=== PATIENT | male | born 1960 | race African-American/Black ===

== ENCOUNTER 2024-02-13 17:23 | Inpatient (IN) | payer OTHER ==
[2024-02-13 18:14] LABS: #Basophils 0.03 10x3/uL (0.0-0.2); %Basophils 0.3 % (0.0-1.0); %Eosinophils 2.8 % (0.0-10.0); %Lymphocytes 19.5 % (21.0-51.0); %Monocytes 8.3 % (0.0-10.0); %Neutrophils 68.5 % (42.0-75.0); Hematocrit 27.7 % (42.0-52.0); Mean Corpuscular HGB CONC 28.9 g/dL (32.0-36.0); Mean Corpuscular Hemoglobin 20.9 pg (27.0-31.0); Mean Corpuscular Volume 72.3 fL (78.0-98.0); Mean Platelet Volume 9.2 fL (7.4-10.4); Platelet Count 422 10x3/uL (130-400); Red Blood Cell (RBC) Count 3.83 mill/uL (4.70-6.10)
[2024-02-13 18:35] LABS: ALT (SGPT) 8 U/L (8-55); AST (SGOT) 13 U/L (5-34); Albumin 2.9 g/dL (3.4-4.8); Alkaline Phosphatase 86 U/L (40-110); Anion Gap 14 mmol/L (10-20); BUN (Urea Nitrogen) 13 mg/dL (8.4-25.7); Bilirubin, Total 0.2 mg/dL (0.2-1.2); Calc. Creatinine Clearance 0 mL/min (70-130); Calcium 8.5 mg/dL (7.8-10.44); Carbon Dioxide 23 mmol/L (23-31); Chloride 105 mmol/L (98-107); Estimated GFR 99; Globulin 4.3 g/dL (2.4-3.5); Glucose 89 mg/dL (80-115); Hypochromia SLIGHT = 6-15 cells HPF (0-5); Macrocytosis SLIGHT = 6-15 cells HPF (0-5); Platelet Adequacy Comment Platelets Increased; Polychromasia MODERATE = 3-4 cells HPF (0-2); Potassium 3.7 mmol/L (3.5-5.1); Protein, Total 7.2 g/dL (5.8-8.1); Schistocytes SLIGHT = 2-5 cells HPF (0-1); Sodium 138 mmol/L (136-145)
[2024-02-13 18:40] LABS: Troponin I Less than 0.010 ng/mL (< 0.028)
[2024-02-13] MEDS ORDERED: Dexamethasone 10 MG/ML VIAL ONE (18:47)
[2024-02-13] MEDS ORDERED: levETIRAcetam 500 MG (5 mL) VIAL ONE (18:48)
[2024-02-13 19:28] LABS: Bacteria/HPF None Seen HPF (None Seen); Bilirubin Negative (Negative); Blood, Urine Negative (Negative); CAUTI Indications for Culture Alt mental st,lethar; Clarity Clear (Clear); Glucose, Urine (Dipstick) Normal (Negative); Ketone, Urine Negative (Negative); Leukocyte Negative Leu/uL (Negative); Nitrite Negative (Negative); Protein, Urine (Dipstick) 10 mg/dL (Neg-Trace); RBC/HPF 0-3 HPF (0-3); Specific Gravity, Urine 1.017 (1.002-1.036); Squamous Epithelial None Seen HPF (0-3); WBC/HPF 0-3 HPF (0-3); pH, Urine 6.5 (5.0-9.0)
[2024-02-13 19:30] LABS: Urine Culture Reflex No No
[2024-02-13] MEDS ORDERED: Dextrose 5% in Water 1,000 ML IV PRN (21:12)
[2024-02-13] MEDS ORDERED: Glucagon 1 MG/ML KIT IM PRN (21:12)
[2024-02-13] MEDS ORDERED: Dextrose 50% Abboject 50 ML SYRINGE SLOW IVP PRN (21:12)
[2024-02-14 00:11] VITALS: BMI 25.5
[2024-02-14] MEDS: Dexamethasone 4 mg/ml Vial SLOW IVP SCH (00:49)
[2024-02-14] MEDS: Pantoprazole 40 MG VIAL IVP SCH (08:17)
[2024-02-14] MEDS: levETIRAcetam 500 MG (5 mL) VIAL SLOW IVP SCH (08:17)
[2024-02-14] MEDS: Acetaminophen 325 MG TAB PO PRN (08:17)
[2024-02-14] MEDS: Insulin Lispro 100 UNIT/ML 10 ML VIAL SC PRN (11:23)
[2024-02-14] MEDS: OXcarbazepine 150 MG TAB PO SCH (16:09)
[2024-02-14] MEDS: QUEtiapine 200 MG TAB PO SCH ×2 (16:09→20:46)
[2024-02-14 17:40] VITALS: BMI 25.5
[2024-02-15 04:09] LABS: #Basophils Less than 0.03 10x3/uL (0.0-0.2); #Eosinophils Less than 0.03 10x3/uL (0.0-0.7); %Basophils 0.1 % (0.0-1.0); %Monocytes 2.8 % (0.0-10.0); %Neutrophils 90.4 % (42.0-75.0); Hematocrit 27.5 % (42.0-52.0); Hemoglobin 7.7 g/dL (14.0-18.0); Mean Corpuscular Hemoglobin 20.6 pg (27.0-31.0); Mean Corpuscular Volume 73.7 fL (78.0-98.0); Mean Platelet Volume 9.9 fL (7.4-10.4); Platelet Count 422 10x3/uL (130-400); Red Blood Cell (RBC) Count 3.73 mill/uL (4.70-6.10)
[2024-02-15 04:21] LABS: Hemoglobin A1c 5.1 % (4.0-6.0)
[2024-02-15 04:26] LABS: Anion Gap 16 mmol/L (10-20); BUN (Urea Nitrogen) 15 mg/dL (8.4-25.7); Calc. Creatinine Clearance 75 mL/min (70-130); Calcium 8.6 mg/dL (7.8-10.44); Carbon Dioxide 17 mmol/L (23-31); Chloride 108 mmol/L (98-107); Estimated GFR 92; Glucose 166 mg/dL (80-115); Magnesium 2.1 mg/dL (1.6-2.6); Potassium 3.6 mmol/L (3.5-5.1); Sodium 137 mmol/L (136-145)
[2024-02-15] MEDS: Furosemide 20 MG TAB PO SCH (10:30)
[2024-02-15] MEDS: Ferrous Sulfate 325 MG TAB PO SCH (10:30)
[2024-02-15] MEDS: OXcarbazepine 150 MG TAB PO SCH (10:30)
[2024-02-15] MEDS: Losartan 25 MG TAB PO SCH (10:31)
[2024-02-15] MEDS: Nicotine 21 MG PATCH TD SCH (10:34)
[2024-02-15 12:29] VITALS: BP 144/89; TEMP 98.5
[2024-02-15] MEDS: QUEtiapine 200 MG TAB PO SCH (13:25)
[2024-02-17] MEDS ORDERED: FLU (Fluarix Triv) TS24-25(6MOS UP)/PF 45 MCG/0.5 ML Syringe IM ONE (09:00)
== END 2024-02-15 15:31 | disposition home or self-care (01) | DRG 100 ==
LOC: ERS 17:23 → ERHOLD 20:29 → 2NO 02-14 00:28
PROVIDERS: ADMIT Internal Medicine; ATTEND Internal Medicine
PROC: 4A10X4Z Monitoring of Central Nervous Electrical Activity, External Approach (ICD-10-PCS; principal; 2024-02-13)
DX: R56.9 Unspecified convulsions (principal); G93.6 Cerebral edema; G93.40 Encephalopathy, unspecified; C34.90 Malignant neoplasm of unspecified part of unspecified bronchus or lung; E11.9 Type 2 diabetes mellitus without complications; I10 Essential (primary) hypertension; Z66 Do not resuscitate; F20.9 Schizophrenia, unspecified; G93.89 Other specified disorders of brain; D50.9 Iron deficiency anemia, unspecified; R26.9 Unspecified abnormalities of gait and mobility; F17.210 Nicotine dependence, cigarettes, uncomplicated; Z79.899 Other long term (current) drug therapy
CPT/HCPCS: 36415; 36416; 70450; 70553; 71045; 76376; 80048; 80053; 81001; 83036; 83605; 83735; 84484; 85025; 93005; 95700; 95711; 95957; 96374; 96375; J1100; J1953; J2470

== ENCOUNTER 2024-10-12 20:26 | Observation (INO) | payer OTHER ==
[~2024-10-12 20:26] MED LIST: Iopamidol-370 76% 500 ML MDV (1 ML CHARGE) ONE
[2024-10-12] MEDS ORDERED: levETIRAcetam 500 MG (5 mL) VIAL ONE (20:33)
[2024-10-12 21:28] LABS: #Basophils 0.05 10x3/uL (0.0-0.2); #Eosinophils 0.18 10x3/uL (0.0-0.7); #Monocytes 0.46 10x3/uL (0.11-0.59); #Neutrophils 8.08 10x3/uL (1.40-6.50); %Basophils 0.5 % (0.0-1.0); %Eosinophils 1.8 % (0.0-10.0); %Lymphocytes 9.6 % (21.0-51.0); %Monocytes 4.7 % (0.0-10.0); %Neutrophils 82.4 % (42.0-75.0); Hematocrit 32.7 % (42.0-52.0); Hemoglobin 8.8 g/dL (14.0-18.0); Mean Corpuscular Hemoglobin 20.9 pg (27.0-31.0); Mean Corpuscular Volume 77.5 fL (78.0-98.0); Platelet Count 310 10x3/uL (130-400); Red Blood Cell (RBC) Count 4.22 mill/uL (4.70-6.10); White Blood Cell (WBC) Count 9.81 10x3/uL (4.8-10.8)
[2024-10-12 21:33] LABS: PTT 28.5 sec (22.9-36.1)
[2024-10-12 21:40] LABS: INR-International Normal Ratio 1.5; Prothrombin Time 18.2 sec (12.0-14.7)
[2024-10-12 21:42] LABS: Troponin I 0.011 ng/mL (< 0.028)
[2024-10-12 21:50] LABS: ALT (SGPT) 8 U/L (Less than 45); AST (SGOT) 36 U/L (11-34); Albumin 4.0 g/dL (3.1-4.5); Alkaline Phosphatase 98 U/L (40-110); Anion Gap 27 mmol/L (10-20); BUN (Urea Nitrogen) 15 mg/dL (8.4-25.7); Bilirubin, Total 0.2 mg/dL (0.3-1.2); Calc. Creatinine Clearance 0 mL/min (70-130); Calcium 8.4 mg/dL (7.8-10.44); Carbon Dioxide 9 mmol/L (23-31); Chloride 106 mmol/L (98-107); Globulin 3.7 g/dL (2.4-3.5); Glucose 197 mg/dL (80-115); Potassium 4.0 mmol/L (3.5-5.1); Sodium 138 mmol/L (136-145)
[2024-10-12 21:52] LABS: Acetaminophen Less than 10 mcg/mL (Less than 10); CK (CPK) 194 U/L (30-200); Lipase 16 U/L (8-78); Salicylate Less than 8.0 mg/dL (Less than 8.0)
[2024-10-12] MEDS ORDERED: Dexamethasone 10 MG/ML VIAL ONE (21:55)
[2024-10-12 22:05] LABS: Anisocytosis SLIGHT = 6-15 cells HPF (0-5); Burr Cells SLIGHT = 2-5 cells HPF (0-1); Macrocytosis SLIGHT = 6-15 cells HPF (0-5); Platelet Adequacy Comment Platelets Normal; Polychromasia SLIGHT = 2-3 cells HPF (0-2)
[2024-10-12 22:28] LABS: Bacteria/HPF None Seen HPF (None Seen); CAUTI Indications for Culture Alt mental st,lethar; Glucose, Urine (Dipstick) 300 mg/dL (Negative); Leukocyte Negative Leu/uL (Negative); Protein, Urine (Dipstick) 20 mg/dL (Neg-Trace); RBC/HPF 0-3 HPF (0-3); Specific Gravity, Urine 1.022 (1.002-1.036); WBC/HPF 0-3 HPF (0-3)
[2024-10-12 22:30] LABS: Cocaine Metabolite Screen Negative (Negative); THC/Cannabinoid Screen PRELIM POSITIVE (Negative); Tricyclic Screen PRELIM POSITIVE (Negative)
[2024-10-12 22:32] LABS: Urine Culture Reflex No No
[2024-10-12 22:38] LABS: Actual Bicarbonate (HCO3v) 18.3 mEq/L (22-28); Base Excess -6.0 mEq/L (-2.0 to +3.0); Calcium, Ionized (venous) 1.05 mmol/L (1.16-1.32); Chloride (VBG) 107 mmol/L (98-106); Hematocrit-VBG 29 % (42.0-52.0); Hemoglobin (Hb) 9.8 g/dL (13.1-17.2); Potassium (VBG) 4.09 mmol/L (3.70-5.30); Sodium 139 mmol/L (133-146)
[2024-10-13] MEDS ORDERED: Acetaminophen 325 MG TAB PO PRN (00:48)
[2024-10-13] MEDS ORDERED: Ondansetron PF 4 MG/2 ML Vial IVP PRN (00:48)
[2024-10-13] MEDS ORDERED: Calcium Carbonate 500 MG ChewTAB PO PRN (00:48)
[2024-10-13] MEDS ORDERED: Electrolyte Replacement Protocol 1 EACH FS SCH (01:00)
[2024-10-13 04:49] LABS: #Basophils Less than 0.03 10x3/uL (0.0-0.2); #Eosinophils Less than 0.03 10x3/uL (0.0-0.7); #Monocytes 0.07 10x3/uL (0.11-0.59); #Neutrophils 8.76 10x3/uL (1.40-6.50); %Basophils 0.1 % (0.0-1.0); %Eosinophils 0.1 % (0.0-10.0); %Lymphocytes 3.7 % (21.0-51.0); %Monocytes 0.8 % (0.0-10.0); %Neutrophils 94.9 % (42.0-75.0); Hematocrit 27.7 % (42.0-52.0); Hemoglobin 7.6 g/dL (14.0-18.0); Mean Corpuscular Hemoglobin 20.6 pg (27.0-31.0); Mean Corpuscular Volume 75.1 fL (78.0-98.0); Platelet Count 245 10x3/uL (130-400); Red Blood Cell (RBC) Count 3.69 mill/uL (4.70-6.10); White Blood Cell (WBC) Count 9.23 10x3/uL (4.8-10.8)
[2024-10-13] MEDS ORDERED: Dextrose 50% Abboject 50 ML SYRINGE SLOW IVP PRN (04:49)
[2024-10-13] MEDS ORDERED: Glucagon 1 MG/ML KIT IM PRN (04:49)
[2024-10-13 04:55] LABS: ALT (SGPT) 10 U/L (Less than 45); AST (SGOT) 40 U/L (11-34); Albumin 3.4 g/dL (3.1-4.5); Alkaline Phosphatase 86 U/L (40-110); Anion Gap 14 mmol/L (10-20); BUN (Urea Nitrogen) 11 mg/dL (8.4-25.7); Bilirubin, Total 0.2 mg/dL (0.3-1.2); Calc. Creatinine Clearance 40 mL/min (70-130); Calcium 7.9 mg/dL (7.8-10.44); Carbon Dioxide 16 mmol/L (23-31); Chloride 110 mmol/L (98-107); Globulin 3.5 g/dL (2.4-3.5); Glucose 120 mg/dL (80-115); Potassium 4.6 mmol/L (3.5-5.1); Sodium 135 mmol/L (136-145)
[2024-10-13] MEDS: Sodium Ferric Gluconate 250 MG in Sodium Chloride 0.9% 250 ML 250 ML IVPB SCH (10:23)
[2024-10-13] MEDS ORDERED: levETIRAcetam 500 MG (5 mL) VIAL SLOW IVP SCH ×2 (11:00→21:00)
[2024-10-13] MEDS: levETIRAcetam 500 MG (5 mL) VIAL SLOW IVP SCH (12:12)
[2024-10-13] MEDS: levETIRAcetam 500 MG TAB PO SCH (12:13)
[2024-10-13] MEDS: Pantoprazole 40 MG DR.TAB PO SCH (12:13)
[2024-10-13] MEDS: Pantoprazole 40 MG VIAL IVP SCH (12:13)
[2024-10-13] MEDS: Metoprolol Succinate XL 50 MG ER.TAB PO SCH (15:05)
[2024-10-13] MEDS: Furosemide 20 MG TAB PO SCH (15:05)
[2024-10-13] MEDS: Losartan 25 MG TAB PO SCH (15:06)
[2024-10-13 16:50] VITALS: BMI 10.4
[2024-10-13] MEDS ORDERED: levETIRAcetam 500 MG TAB PO SCH (21:00)
[2024-10-14] MEDS: oxyCODONE 5 MG TAB PO PRN (00:58)
[2024-10-14] MEDS: Aspirin 81 mg Enteric Coated Tablet PO SCH (08:13)
[2024-10-14] MEDS: LOXAPINE SUCCINATE 10 MG PO SCH (10:06)
[2024-10-14 12:04] VITALS: TEMP 97.8
[2024-10-14 14:13] VITALS: BP 138/96
== END 2024-10-14 15:40 | disposition home or self-care (01) ==
LOC: ERS 20:26 → PCU 10-13 00:50
PROVIDERS: ADMIT Student in an Organized Health Care Education/Training Program; ATTEND Emergency Medicine
DX: I63.9 Cerebral infarction, unspecified (principal); G40.409 Other generalized epilepsy and epileptic syndromes, not intractable, without status epilepticus; E11.9 Type 2 diabetes mellitus without complications; D50.9 Iron deficiency anemia, unspecified; F12.10 Cannabis abuse, uncomplicated; C78.00 Secondary malignant neoplasm of unspecified lung; I10 Essential (primary) hypertension; Z87.891 Personal history of nicotine dependence; Z79.899 Other long term (current) drug therapy
CPT/HCPCS: 36415; 36416; 70450; 70496; 70498; 70553; 71045; 76376; 80053; 80183; 80306; 80307; 81001; 82010; 82140; 82550; 82805; 83605; 83690; 84146; 84443; 84484; 85025; 85610; 85730; 93005; 93306; 94760; 95819; 96374; 96375; 96376; G0378; J1100; J1953; J2060; J2470; J2916; J7050; Q9967

== ENCOUNTER 2024-10-20 21:53 | Inpatient (IN) | payer OTHER ==
[~2024-10-20 21:53] MED LIST changes: +Iopamidol 370 76% 100 ML VIAL ONE; -Iopamidol-370 76% 500 ML MDV (1 ML CHARGE) ONE
[2024-10-20 22:18] LABS: Hematocrit 36.1 % (42.0-52.0); Hemoglobin 10.2 g/dL (14.0-18.0); Mean Corpuscular Hemoglobin 21.7 pg (27.0-31.0); Mean Corpuscular Volume 77.0 fL (78.0-98.0); Platelet Count 297 10x3/uL (130-400); Red Blood Cell (RBC) Count 4.69 mill/uL (4.70-6.10); White Blood Cell (WBC) Count 10.31 10x3/uL (4.8-10.8)
[2024-10-20 22:37] LABS: ALT (SGPT) 10 U/L (Less than 45); AST (SGOT) 32 U/L (11-34); Albumin 3.9 g/dL (3.1-4.5); Alkaline Phosphatase 101 U/L (40-110); Anion Gap 18 mmol/L (10-20); Anisocytosis SLIGHT = 6-15 cells HPF (0-5); BUN (Urea Nitrogen) 9 mg/dL (8.4-25.7); Bilirubin, Total 0.2 mg/dL (0.3-1.2); Calc. Creatinine Clearance 0 mL/min (70-130); Calcium 8.5 mg/dL (7.8-10.44); Carbon Dioxide 17 mmol/L (23-31); Chloride 110 mmol/L (98-107); Globulin 3.7 g/dL (2.4-3.5); Glucose 205 mg/dL (80-115); Macrocytosis SLIGHT = 6-15 cells HPF (0-5); Ovalocytes SLIGHT = 2-5 cells HPF (0-1); Platelet Adequacy Comment Platelets Normal; Polychromasia SLIGHT = 2-3 cells HPF (0-2); Potassium 3.8 mmol/L (3.5-5.1); Schistocytes SLIGHT = 2-5 cells HPF (0-1); Sodium 141 mmol/L (136-145)
[2024-10-20 22:40] LABS: Troponin I 0.010 ng/mL (< 0.028)
[2024-10-20] MEDS ORDERED: cefTRIAXone (ROCEPHIN) 2 GM VIAL ONE (22:51)
[2024-10-20] MEDS ORDERED: Aspirin Chewable 81 MG TAB ONE (22:51)
[2024-10-20 23:03] LABS: Actual Bicarbonate (HCO3v) 19.0 mEq/L (22-28); Base Excess -7.0 mEq/L (-2.0 to +3.0); Calcium, Ionized (venous) 1.12 mmol/L (1.16-1.32); Chloride (VBG) 108 mmol/L (98-106); Hematocrit-VBG 32 % (42.0-52.0); Hemoglobin (Hb) 10.8 g/dL (13.1-17.2); Potassium (VBG) 3.64 mmol/L (3.70-5.30); Sodium 140 mmol/L (133-146)
[2024-10-21] MEDS ORDERED: Sertraline 25 MG TAB ONE (11:04)
[2024-10-21] MEDS ORDERED: Gabapentin 300 MG CAP ONE (11:04)
[2024-10-21] MEDS ORDERED: levETIRAcetam 500 MG TAB ONE (11:05)
[2024-10-21] MEDS ORDERED: Aspirin Chewable 81 MG TAB ONE (11:05)
[2024-10-21 16:43] LABS: #Basophils Less than 0.03 10x3/uL (0.0-0.2); #Eosinophils Less than 0.03 10x3/uL (0.0-0.7); #Monocytes 1.18 10x3/uL (0.11-0.59); #Neutrophils 7.58 10x3/uL (1.40-6.50); %Basophils 0.2 % (0.0-1.0); %Eosinophils 0.2 % (0.0-10.0); %Lymphocytes 12.0 % (21.0-51.0); %Monocytes 11.7 % (0.0-10.0); %Neutrophils 75.3 % (42.0-75.0); Hematocrit 31.2 % (42.0-52.0); Hemoglobin 8.7 g/dL (14.0-18.0); Mean Corpuscular Hemoglobin 22.0 pg (27.0-31.0); Mean Corpuscular Volume 79.0 fL (78.0-98.0); Platelet Count 216 10x3/uL (130-400); Red Blood Cell (RBC) Count 3.95 mill/uL (4.70-6.10); White Blood Cell (WBC) Count 10.07 10x3/uL (4.8-10.8)
[2024-10-21 17:03] LABS: Anion Gap 12 mmol/L (10-20); BUN (Urea Nitrogen) 11 mg/dL (8.4-25.7); Calc. Creatinine Clearance 0 mL/min (70-130); Calcium 8.1 mg/dL (7.8-10.44); Carbon Dioxide 20 mmol/L (23-31); Chloride 111 mmol/L (98-107); Glucose 91 mg/dL (80-115); Potassium 4.0 mmol/L (3.5-5.1); Sodium 139 mmol/L (136-145)
[2024-10-21 17:13] LABS: Anisocytosis MARKED = >30 cells HPF (0-5); Burr Cells SLIGHT = 2-5 cells HPF (0-1); Macrocytosis SLIGHT = 6-15 cells HPF (0-5); Microcytosis SLIGHT = 6-15 cells HPF (0-5); Platelet Adequacy Comment Platelets Normal; Polychromasia MODERATE = 3-4 cells HPF (0-2); Schistocytes SLIGHT = 2-5 cells HPF (0-1)
[2024-10-21] MEDS ORDERED: Senokot S 8.6-50 MG TAB PO PRN (18:41)
[2024-10-21] MEDS ORDERED: Dextrose 50% Abboject 50 ML SYRINGE SLOW IVP PRN (18:41)
[2024-10-21] MEDS ORDERED: Ondansetron PF 4 MG/2 ML Vial IVP PRN (18:41)
[2024-10-21] MEDS ORDERED: Glucagon 1 MG/ML KIT IM PRN (18:41)
[2024-10-21] MEDS ORDERED: Electrolyte Replacement Protocol 1 EACH FS SCH (18:45)
[2024-10-21] MEDS ORDERED: Ipratropium Bromide 2.5 ml Neb NEB PRN (18:51)
[2024-10-21 20:03] VITALS: BMI 25.0
[2024-10-21] MEDS: Benztropine 1 MG TAB PO SCH (21:01)
[2024-10-21] MEDS: levETIRAcetam 500 MG TAB PO SCH (21:02)
[2024-10-21] MEDS: Furosemide 20 MG (2 mL) VIAL SLOW IVP SCH (21:28)
[2024-10-21] MEDS: Metoprolol Succinate XL 25 MG ER.TAB PO SCH (21:29)
[2024-10-21] MEDS ORDERED: Ipratropium Bromide 2.5 ml Neb NEB SCH (22:30)
[2024-10-22 04:57] LABS: Anion Gap 14 mmol/L (10-20); BUN (Urea Nitrogen) 10 mg/dL (8.4-25.7); Calc. Creatinine Clearance 89 mL/min (70-130); Calcium 8.3 mg/dL (7.8-10.44); Carbon Dioxide 21 mmol/L (23-31); Chloride 110 mmol/L (98-107); Glucose 142 mg/dL (80-115); Potassium 4.2 mmol/L (3.5-5.1); Sodium 141 mmol/L (136-145)
[2024-10-22 05:45] LABS: Hematocrit 31.7 % (42.0-52.0); Hemoglobin 9.1 g/dL (14.0-18.0); Mean Corpuscular Hemoglobin 22.4 pg (27.0-31.0); Mean Corpuscular Volume 77.9 fL (78.0-98.0); Platelet Count 233 10x3/uL (130-400); Red Blood Cell (RBC) Count 4.07 mill/uL (4.70-6.10); White Blood Cell (WBC) Count 10.96 10x3/uL (4.8-10.8)
[2024-10-22 06:26] LABS: Anisocytosis SLIGHT = 6-15 cells HPF (0-5); Microcytosis SLIGHT = 6-15 cells HPF (0-5); Platelet Adequacy Comment Platelets Normal; Polychromasia SLIGHT = 2-3 cells HPF (0-2); Smudge Cells 10.0 %
[2024-10-22] MEDS: Furosemide 20 MG TAB PO SCH (10:25)
[2024-10-22] MEDS: Pantoprazole 40 MG DR.TAB PO SCH (10:25)
[2024-10-22] MEDS: Ferrous Sulfate 325 MG TAB PO SCH (10:26)
[2024-10-22] MEDS: Aspirin 81 mg Enteric Coated Tablet PO SCH (10:26)
[2024-10-22] MEDS: Enoxaparin 40 MG (0.4 mL) SYRINGE SC SCH (10:29)
[2024-10-22] MEDS: Metoprolol Succinate XL 50 MG ER.TAB PO SCH (10:31)
[2024-10-22] MEDS: Gabapentin 300 MG CAP PO SCH (15:17)
[2024-10-22] MEDS: Metoprolol Succinate XL 25 MG ER.TAB PO SCH (15:45)
[2024-10-22] MEDS: Furosemide 20 MG (2 mL) VIAL SLOW IVP SCH (15:45)
[2024-10-23] MEDS: Sertraline 25 MG TAB PO SCH (09:42)
[2024-10-23] MEDS: PNEUMOC 20-VAL CONJ-DIP CRM/PF 0.5 ML SYRINGE IM ONE (09:45)
[2024-10-23] MEDS: Amoxicillin/Potassium Clav 875 MG TAB PO SCH (20:03)
[2024-10-24 04:26] LABS: Anion Gap 13 mmol/L (10-20); BUN (Urea Nitrogen) 13 mg/dL (8.4-25.7); Calc. Creatinine Clearance 81 mL/min (70-130); Calcium 8.6 mg/dL (7.8-10.44); Carbon Dioxide 21 mmol/L (23-31); Chloride 108 mmol/L (98-107); Glucose 94 mg/dL (80-115); Potassium 3.7 mmol/L (3.5-5.1); Sodium 138 mmol/L (136-145)
[2024-10-24] MEDS: Acetaminophen 325 MG TAB PO PRN (10:09)
[2024-10-24 12:01] VITALS: TEMP 97.4
[2024-10-24 12:43] VITALS: BP 133/90
== END 2024-10-24 12:55 | disposition home or self-care (01) | DRG 871 ==
LOC: ERS 21:53 → 2SE 10-21 17:19
PROVIDERS: ADMIT Internal Medicine; ATTEND Internal Medicine
DX: A41.9 Sepsis, unspecified organism (principal); J69.0 Pneumonitis due to inhalation of food and vomit; J96.01 Acute respiratory failure with hypoxia; J44.1 Chronic obstructive pulmonary disease with (acute) exacerbation; J44.0 Chronic obstructive pulmonary disease with (acute) lower respiratory infection; C34.90 Malignant neoplasm of unspecified part of unspecified bronchus or lung; C79.31 Secondary malignant neoplasm of brain; I10 Essential (primary) hypertension; D50.9 Iron deficiency anemia, unspecified; F12.91 Cannabis use, unspecified, in remission; J43.9 Emphysema, unspecified; R65.20 Severe sepsis without septic shock; G40.909 Epilepsy, unspecified, not intractable, without status epilepticus; I69.391 Dysphagia following cerebral infarction; Z79.899 Other long term (current) drug therapy
CPT/HCPCS: 36415; 36416; 71045; 71275; 74177; 80048; 80053; 82805; 83605; 83690; 83880; 84484; 85025; 87040; 93005; 94660; 96365; J0295; J0696; J1650; J1940; J2919; J7620; Q9967